=== PATIENT | male | born 1945 | race Two or more races ===

== ENCOUNTER 2019-11-10 00:18 | Emergency (ER) | payer MEDICARE ==
[~2019-11-10] VITALS: Ht 167.6 cm; Wt 64.4 kg
[2019-11-10 03:59] LABS: Basophils # (auto) 0.1 uL; Basophils % (auto) 0.7 % (0.0-2.0); Eosinophils # (auto) 0 uL; Eosinophils % (auto) 0.5 % (0.0-7.0); Hematocrit 46.5 % (41.0-53.0); Hemoglobin 16.3 g/dL (13.5-17.5); Lymphocytes # (auto) 1.9 uL; Lymphocytes % (auto) 21.9 % (10.0-50.0); Mean Corpuscular Hemoglobin 32.9 pg (28.0-32.0); Mean Corpuscular Hgb Conc. 35.1 g/dL (32.0-36.0); Mean Corpuscular Volume 93.8 fL (80.0-100.0); Monocytes # (auto) 0.7 uL; Monocytes % (auto) 8.2 % (0.0-12.0); Neutrophils # (auto) 5.9 uL; Neutrophils % (auto) 68.7 % (37.0-80.0); Nucleated Red Blood Cells % 0.1 %; Platelet Count (auto) 206 10^3/uL (140-450); Red Blood Cells 4.95 10^6/uL (4.5-5.90); Red Cell Distribution Width 12.7 % (11.8-14.3); White Blood Cell 8.5 10^3/uL (4.4-10.8)
[2019-11-10 04:21] LABS: Albumin 3.8 g/dL (3.4-5.0); BUN/Creatinine Ratio 19.8; Calcium 8.9 mg/dL (8.5-10.1)
[2019-11-10 04:24] LABS: Bilirubin, Total 1.3 mg/dL (0.2-1.0); Total Protein 7.5 g/dL (6.4-8.2)
[2019-11-10] MEDS ORDERED: IOHEXOL 300 MG/ML 100ML BOTTLE IJ ONE (04:55)
[2019-11-10] MEDS ORDERED: FAMOTIDINE (10MG/ML) 2ML VL IV ONE (06:00)
[2019-11-10] MEDS ORDERED: diphenhdrAMINE HCL 50 MG/1 ML VL IV ONE (06:00)
[2019-11-10] MEDS ORDERED: methylPREDNISolone SOD SUCC 125 MG/2 ML VL IV ONE (06:00)
[2019-11-10 09:40] VITALS: BP 114/72
== END 2019-11-10 09:41 | disposition home or self-care (01) ==
LOC: ER 00:26
DX: S29.011A Strain of muscle and tendon of front wall of thorax, initial encounter (principal); M50.30 Other cervical disc degeneration, unspecified cervical region; Z88.0 Allergy status to penicillin; Z91.013 Allergy to seafood; V43.52XA Car driver injured in collision with other type car in traffic accident, initial encounter; Y93.89 Activity, other specified; Y99.8 Other external cause status; Y92.410 Unspecified street and highway as the place of occurrence of the external cause
CPT/HCPCS: 36415; 70450; 71260; 72125; 74177; 80053; 85025; 96374; 96375; 99284; J1200; J2930; J3490; Q9967